=== PATIENT | male | born 1955 | race Caucasian/White ===

== ENCOUNTER 2022-04-25 13:14 | Outpatient (CLI) | payer MEDICARE, OTHER | END 2022-04-25 13:15 | disposition home or self-care (01) | LOC: CSHULT 13:14 | PROVIDERS: ATTEND Internal Medicine Gastroenterology | DX: D50.9 Iron deficiency anemia, unspecified (principal); K92.1 Melena; E80.6 Other disorders of bilirubin metabolism; Z86.010 Personal history of colon polyps | CPT/HCPCS: 76705 ==

== ENCOUNTER 2022-04-28 13:03 | Outpatient (CLI) | payer MEDICARE, OTHER ==
[2022-04-28] MEDS ORDERED: Iopamidol 300 61% 100 ML VIAL FS ONE (13:33)
== END 2022-04-28 13:04 | disposition home or self-care (01) ==
LOC: CSHCT 13:03
PROVIDERS: ATTEND Internal Medicine
DX: D64.9 Anemia, unspecified (principal); R91.8 Other nonspecific abnormal finding of lung field; J98.11 Atelectasis
CPT/HCPCS: 74177; Q9967

== ENCOUNTER 2022-10-17 08:13 | Outpatient (CLI) | payer MEDICARE, OTHER | END 2022-10-17 08:14 | disposition home or self-care (01) | LOC: CSHCT 08:13 | PROVIDERS: ATTEND Internal Medicine Cardiovascular Disease | DX: Z01.810 Encounter for preprocedural cardiovascular examination (principal); I48.19 Other persistent atrial fibrillation; I25.10 Atherosclerotic heart disease of native coronary artery without angina pectoris; Z95.1 Presence of aortocoronary bypass graft; I31.8 Other specified diseases of pericardium | CPT/HCPCS: 71275; 80053; 81003; 82565; 85027; 85610; 85730 ==